=== PATIENT | male | born 1970 | race Caucasian/White ===

== ENCOUNTER 2020-03-03 11:37 | Inpatient (IN) | payer OTHER, SELFPAY ==
[2020-03-03] VITALS (11 sets, daily range): BP systolic 96–141; BP diastolic 61–93; PULSE 111–129; RESP 18–26; TEMP 37.4–38.9; O2SAT 95–98; BMI 36.5
--- NOTE | 2020-03-03 12:26 | XRR_ITS ---
PROCEDURE INFORMATION: Exam: XR Chest, 1 View Exam date and time: 03/03/2020 12:28 PM Age: 49 years old Clinical indication: Cough and fever; Additional info: Cough, fever, covid precautions TECHNIQUE: Imaging protocol: XR of the chest Views: 1 view. COMPARISON: No relevant prior studies available. FINDINGS: Lungs: Unremarkable. No consolidation. Pleural space: Unremarkable. No pleural effusion. No pneumothorax. Heart/Mediastinum: Unremarkable. No cardiomegaly. Bones/joints: Unremarkable. XR/XR chest 1V portable [id number] IMPRESSION: No acute findings.
--- NOTE | 2020-03-03 12:26 | ECG_ITS ---
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 Measurements Intervals [place] Rate: 121 P: 56 ND: 142 QRS: 9 QRSD: 87 T: 32 QT: 305 QTc: 433 Interpretive Statements SINUS TACHYCARDIA ABNORMAL RHYTHM ECG No previous ECG available for comparison Electronically Signed On 03-03-2020 20:42:33 CDT by Red Sanon M.D. [email or web address]/[id number] f
[2020-03-03] MEDS: sodium chloride 0.9% 1,000 ML 999 ML IV ×2 (12:41→15:46)
--- NOTE | 2020-03-03 12:45 | ED_ITS ---
HPI - Fever General: Chief Complaint: Fever Stated Complaint: HAD TEMP LAST NIGHT Time Seen by Provider: 03/03/20 12:09 History of Present Illness: HPI Narrative: This patient is a 49-year-old male type II diabetic presenting with fever, cough, sore throat. He said he had a sore throat for about 8 days but attributed to allergies. Last night he developed fevers and chills with a temperature up to almost 102. His temp here was 99 8 after taking antipyretics at home. He has no known exposures to anyone with COVID. He said in general he has not been around too many people. 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 He did go to a [employer] last night. Dr. Cortés is his PCP. This morning he is complaining of continued sore throat as well as body aches and low back pain. He denies any change in his sense of taste or smell. MD elicited complaint: fever and malaise Pertinent past history: diabetes Onset (ago): day(s) (1, with sore throat for 8 days) Measured temperature: 101.8 F Relieving factors: acetaminophen Associated symptoms: Reports flank pain, chills, cough and sore throat; Deny abdominal pain, chest pain, headache(s), nausea or vomiting Review of Systems General: Reports: 10 or more systems reviewed and unremarkable except in HPI and below Const: Reports: chills Eyes: Denies: change in vision ENMT: Reports: throat pain; Denies: odynophagia Card: Denies: chest pain or swelling of feet/ankles Resp: Reports: non-productive cough; Denies: dyspnea or productive cough GI: Denies: abdominal pain, nausea or vomiting : Reports: flank pain Musc: Reports: back pain; Denies: neck pain Skin/Breast: Denies: rash Neuro: Denies: headache(s), numbness in extremities or weakness in extremities Will/Lymph: Denies: easy bruising or easy bleeding Physical Exam Const: COMMON NORMALS: no acute distress, patient oriented x3, no limitations and alert GENERAL APPEARANCE: cooperative and comfortable HENMT: HEAD & SCALP: normal to inspection FACE & SINUS: normal facial exam THROAT: posterior oropharynx normal Eye: GENERAL EYE: appearance normal, both eyes and all related structures Neck/C-Spine: COMMON NORMALS: supple, no meningeal signs and no JVD Chest: COMMONS NORMALS: normal inspection of the chest Resp: COMMON NORMALS: normal respiratory effort, No use of accessory muscles and clear to auscultation bilaterally AUSCULTATION: clear to auscultation bilaterally Cardio: COMMON NORMALS: no JVD, regular rhythm and No murmurs present (Cardio) RATE: tachycardic RHYTHM: regular rhythm GI: COMMON NORMALS: Normal to inspection, nondistended, normoactive bowel sounds present, Soft to palpation and non-tender INSPECTION: Yes normal to inspection AUSCULTATION: Yes normoactive bowel sounds PALPATION: Yes Soft to palpation Back/Pelvis: COMMON NORMALS: thoracic and lumbar spine normal to inspection Extremity: COMMON NORMALS: normal to inspection Neuro: COMMON NORMALS: patient oriented x3, moves all extremities, no focal motor deficits and no sensory deficits noted SENSORIUM/ORIENTATION: Yes alert MENINGEAL SIGNS: Yes no meningeal signs Psych: COMMON NORMALS: mental status grossly normal, cooperative and normal affect Skin: COMMON NORMALS: no rashes or lesions noted and turgor normal GENERAL SKIN EXAM: no rashes or lesions noted and turgor normal Course ED course: Patient was given a liter of fluid and remained persistently tachycardic around 1 15-1 20. Blood pressure dropped around 90 systolic. Sats remained about 95% on room air. His labs are not significantly abnormal other than a slightly elevated d-dimer of 0.73. Urine was negative. Flu and strep were negative. Chemistry was normal other than an elevated glucose. Lactate is slightly elevated at 2.6. CRP is quite elevated at 61.6. Procalcitonin is negative. The rapid COVID antigen test was negative. A repeat PCT COVID test is pending due to the clinical concern that that may have been a false negative. Because of his persistent tachycardia and hypotension going to admit him to the hospital. If this is COVID these could be signs of worsening. If it is not COVID then we need to determine the cause of these abnormal vital signs. At this point he is not requiring oxygen. I did give a dose of Lovenox because of the elevated d-dimer and need for prophylaxis given admission. Dr. Jacobson will take him on MedSur in the COVID rule out area and did order a CTA for further evaluation. Vital Signs: Vital signs: Vital Signs Temperature 99.3 F 08/01/20 11:55 Pulse Rate 112 H 03/03/20 14:00 Respiratory Rate 26 H 03/03/20 14:00 Blood Pressure 96/67 03/03/20 14:00 Pulse Oximetry 96 03/03/20 14:00 MDM - Fever MDM Narrative: Medical decision making narrative: Fever, cough, sore throat. Symptoms present for about 8 days with worsening last night. No loss of taste or smell. He is also had some loose stools. Presentation is concerning for COVID. He has been to public events recently and has potential exposure though no known exposure. No other obvious source of infection. Potential other viral infection or tick infection. Lab Data: Labs: Lab Results 03/03/20 03/03/20 03/03/20 Range/Units 12:47 12:47 12:47 WBC 11.5 H (4.0-10.0) 10^3/ uL RBC 5.06 (4.1-5.3) 10^6/u L Hgb 15.9 (11.7-16.6) g/dL Hct 43.9 (42.0-52.0) % MCV 86.8 (80-94) fL MCH 31.4 (28.0-34.0) pg MCHC 36.2 H (30.0-36.0) g/dL RDW 12.7 (12.1-15.1) % Plt Count 216 (130-400) 10^3/c mm MPV 10.1 (7.4-10.4) fL Neut % (Auto) 82.7 % Lymph % (Auto) 10.0 % [place] % (Auto) 6.5 % Eos % (Auto) 0.2 % Baso % (Auto) 0.3 % Neut # (Auto) 9.48 H (1.8-7.7) 10^3/u L Lymph # (Auto) 1.1 (0.8-4.8) 10^3/u L [place] # (Auto) 0.7 (0.2-0.9) 10^3/u L Eos # (Auto) 0.0 (0.0-0.8) 10^3/u L Baso # (Auto) 0.0 (0.0-0.1) 10^3/u L Nucleated RBC % (a uto) 0 % Nucleated RBCs # 0.0 /100WBC PT 13.20 (10.5-13.3) SECO NDS INR 0.97 (0.8-1.2) APTT (23.9-36.7) SECO NDS Fibrinogen (184-529) mg/dL D-Dimer 0.73 H (0-0.59) ug/mIFE U Sodium 133 L (136-145) mmol/L Potassium 4.0 (3.5-5.1) mmol/L Chloride 99 (98-107) mmol/L Carbon Dioxide 22 (22-29) mmol/L Anion Gap 16.0 (5-19) BUN 11 (6-20) mg/dL Creatinine 0.7 (0.7-1.2) mg/dL GFR Calculation 119.9 (90-130) mL/min Glucose 238 H (65-115) mg/dL POC Glucose (70-110) mg/dL Calculated Osmolal ity 280 L (285-295) mOsm/k g Lactate (0.5-2.2) mmol/L Calcium 8.6 (8.5-10.5) mg/dL Ferritin (30-400) ng/mL Total Bilirubin 0.7 (0.15-1.2) mg/dL AST 26 (0-40) U/L ALT 31 (0-41) U/L Alkaline Phosphata se 96 (40-130) IU/L Lactate Dehydrogen ase (135-225) U/L Troponin T Baselin e (0-15) ng/L Troponin T 120 Min [place] (0-15) ng/L C-Reactive Protein 61.6 H (0.0-4.9) mg/L NT-Pro-B Natriuret Pep 47 (0-125) pg/mL Total Protein 7.0 (6.6-8.7) g/dL Albumin 4.3 (3.5-5.2) g/dL Globulin 2.7 (1.3-4.6) g/dL Procalcitonin 0.21 (0-0.5) ng/mL Urine Color (Yellow) Urine Appearance (CLEAR) Urine pH (5-7) Ur Specific Gravit y (1.005-1.030) Urine Protein (Negative) Urine Glucose (UA) (Normal) Urine Ketones (Negative) Urine Blood (Negative) Urine Nitrate (Negative) Urine Bilirubin (NEGATIVE) Urine Urobilinogen (Negative) mg/dL Ur Leukocyte Radha ase (Negative) Urine RBC (0-2) /hpf Urine WBC (0-5) /hpf Ur Squamous Epith Cells (0-5) Amorphous Sediment Urine Bacteria (NONE) Urine Mucus Serum Ketones (Negative) Influenza Type A A g (Negative) Influenza Type B A g (Negative) SARS-CoV-2 RNA (RT -PCR) SARS-CoV-2 Ag (Rap id) (Negative) Group A Strep Rapi d (Negative) 03/03/20 03/03/20 03/03/20 Range/Units 12:47 12:47 12:47 WBC (4.0-10.0) 10^3/ uL RBC (4.1-5.3) 10^6/u L Hgb (11.7-16.6) g/dL Hct (42.0-52.0) % MCV (80-94) fL MCH (28.0-34.0) pg MCHC (30.0-36.0) g/dL RDW (12.1-15.1) % Plt Count (130-400) 10^3/c mm MPV (7.4-10.4) fL Neut % (Auto) % Lymph % (Auto) % [place] % (Auto) % Eos % (Auto) % Baso % (Auto) % Neut # (Auto) (1.8-7.7) 10^3/u L Lymph # (Auto) (0.8-4.8) 10^3/u L [place] # (Auto) (0.2-0.9) 10^3/u L Eos # (Auto) (0.0-0.8) 10^3/u L Baso # (Auto) (0.0-0.1) 10^3/u L Nucleated RBC % (a uto) % Nucleated RBCs # /100WBC PT (10.5-13.3) SECO NDS INR (0.8-1.2) APTT 28.5 (23.9-36.7) SECO NDS Fibrinogen 441 (184-529) mg/dL D-Dimer (0-0.59) ug/mIFE U Sodium (136-145) mmol/L Potassium (3.5-5.1) mmol/L Chloride (98-107) mmol/L Carbon Dioxide (22-29) mmol/L Anion Gap (5-19) BUN (6-20) mg/dL Creatinine (0.7-1.2) mg/dL GFR Calculation (90-130) mL/min Glucose (65-115) mg/dL POC Glucose (70-110) mg/dL Calculated Osmolal ity (285-295) mOsm/k g Lactate 2.6 H (0.5-2.2) mmol/L Calcium (8.5-10.5) mg/dL Ferritin (30-400) ng/mL Total Bilirubin (0.15-1.2) mg/dL AST (0-40) U/L ALT (0-41) U/L Alkaline Phosphata se (40-130) IU/L Lactate Dehydrogen ase (135-225) U/L Troponin T Baselin e (0-15) ng/L Troponin T 120 Min [place] (0-15) ng/L C-Reactive Protein (0.0-4.9) mg/L NT-Pro-B Natriuret Pep (0-125) pg/mL Total Protein (6.6-8.7) g/dL Albumin (3.5-5.2) g/dL Globulin (1.3-4.6) g/dL Procalcitonin (0-0.5) ng/mL Urine Color (Yellow) Urine Appearance (CLEAR) Urine pH (5-7) Ur Specific Gravit y (1.005-1.030) Urine Protein (Negative) Urine Glucose (UA) (Normal) Urine Ketones (Negative) Urine Blood (Negative) Urine Nitrate (Negative) Urine Bilirubin (NEGATIVE) Urine Urobilinogen (Negative) mg/dL Ur Leukocyte Radha ase (Negative) Urine RBC (0-2) /hpf Urine WBC (0-5) /hpf Ur Squamous Epith Cells (0-5) Amorphous Sediment Urine Bacteria (NONE) Urine Mucus Serum Ketones Negative (Negative) Influenza Type A A g (Negative) Influenza Type B A g (Negative) SARS-CoV-2 RNA (RT -PCR) SARS-CoV-2 Ag (Rap id) (Negative) Group A Strep Rapi d (Negative) 0803/03/20 03/03/20 Range/Units 12:47 12:48 12:49 WBC (4.0-10.0) 10^3/ uL RBC (4.1-5.3) 10^6/u L Hgb (11.7-16.6) g/dL Hct (42.0-52.0) % MCV (80-94) fL MCH (28.0-34.0) pg MCHC (30.0-36.0) g/dL RDW (12.1-15.1) % Plt Count (130-400) 10^3/c mm MPV (7.4-10.4) fL Neut % (Auto) % Lymph % (Auto) % [place] % (Auto) % Eos % (Auto) % Baso % (Auto) % Neut # (Auto) (1.8-7.7) 10^3/u L Lymph # (Auto) (0.8-4.8) 10^3/u L [place] # (Auto) (0.2-0.9) 10^3/u L Eos # (Auto) (0.0-0.8) 10^3/u L Baso # (Auto) (0.0-0.1) 10^3/u L Nucleated RBC % (a uto) % Nucleated RBCs # /100WBC PT (10.5-13.3) SECO NDS INR (0.8-1.2) APTT (23.9-36.7) SECO NDS Fibrinogen (184-529) mg/dL D-Dimer (0-0.59) ug/mIFE U Sodium (136-145) mmol/L Potassium (3.5-5.1) mmol/L Chloride (98-107) mmol/L Carbon Dioxide (22-29) mmol/L Anion Gap (5-19) BUN (6-20) mg/dL Creatinine (0.7-1.2) mg/dL GFR Calculation (90-130) mL/min Glucose (65-115) mg/dL POC Glucose 233 (70-110) mg/dL Calculated Osmolal ity (285-295) mOsm/k g Lactate (0.5-2.2) mmol/L Calcium (8.5-10.5) mg/dL Ferritin 806 H (30-400) ng/mL Total Bilirubin (0.15-1.2) mg/dL AST (0-40) U/L ALT (0-41) U/L Alkaline Phosphata se (40-130) IU/L Lactate Dehydrogen ase 187 (135-225) U/L Troponin T Baselin e (0-15) ng/L Troponin T 120 Min [place] (0-15) ng/L C-Reactive Protein (0.0-4.9) mg/L NT-Pro-B Natriuret Pep (0-125) pg/mL Total Protein (6.6-8.7) g/dL Albumin (3.5-5.2) g/dL Globulin (1.3-4.6) g/dL Procalcitonin (0-0.5) ng/mL Urine Color (Yellow) Urine Appearance (CLEAR) Urine pH (5-7) Ur Specific Gravit y (1.005-1.030) Urine Protein (Negative) Urine Glucose (UA) (Normal) Urine Ketones (Negative) Urine Blood (Negative) Urine Nitrate (Negative) Urine Bilirubin (NEGATIVE) Urine Urobilinogen (Negative) mg/dL Ur Leukocyte Radha ase (Negative) Urine RBC (0-2) /hpf Urine WBC (0-5) /hpf Ur Squamous Epith Cells (0-5) Amorphous Sediment Urine Bacteria (NONE) Urine Mucus Serum Ketones (Negative) Influenza Type A A g (Negative) Influenza Type B A g (Negative) SARS-CoV-2 RNA (RT -PCR) SARS-CoV-2 Ag (Rap id) (Negative) Group A Strep Rapi d Negative (Negative) 03/03/20 03/03/20 03/03/20 Range/Units 12:49 12:49 13:22 WBC (4.0-10.0) 10^3/ uL RBC (4.1-5.3) 10^6/u L Hgb (11.7-16.6) g/dL Hct (42.0-52.0) % MCV (80-94) fL MCH (28.0-34.0) pg MCHC (30.0-36.0) g/dL RDW (12.1-15.1) % Plt Count (130-400) 10^3/c mm MPV (7.4-10.4) fL Neut % (Auto) % Lymph % (Auto) % [place] % (Auto) % Eos % (Auto) % Baso % (Auto) % Neut # (Auto) (1.8-7.7) 10^3/u L Lymph # (Auto) (0.8-4.8) 10^3/u L [place] # (Auto) (0.2-0.9) 10^3/u L Eos # (Auto) (0.0-0.8) 10^3/u L Baso # (Auto) (0.0-0.1) 10^3/u L Nucleated RBC % (a uto) % Nucleated RBCs # /100WBC PT (10.5-13.3) SECO NDS INR (0.8-1.2) APTT (23.9-36.7) SECO NDS Fibrinogen (184-529) mg/dL D-Dimer (0-0.59) ug/mIFE U Sodium (136-145) mmol/L Potassium (3.5-5.1) mmol/L Chloride (98-107) mmol/L Carbon Dioxide (22-29) mmol/L Anion Gap (5-19) BUN (6-20) mg/dL Creatinine (0.7-1.2) mg/dL GFR Calculation (90-130) mL/min Glucose (65-115) mg/dL POC Glucose (70-110) mg/dL Calculated Osmolal ity (285-295) mOsm/k g Lactate (0.5-2.2) mmol/L Calcium (8.5-10.5) mg/dL Ferritin (30-400) ng/mL Total Bilirubin (0.15-1.2) mg/dL AST (0-40) U/L ALT (0-41) U/L Alkaline Phosphata se (40-130) IU/L Lactate Dehydrogen ase (135-225) U/L Troponin T Baselin e (0-15) ng/L Troponin T 120 Min [place] (0-15) ng/L C-Reactive Protein (0.0-4.9) mg/L NT-Pro-B Natriuret Pep (0-125) pg/mL Total Protein (6.6-8.7) g/dL Albumin (3.5-5.2) g/dL Globulin (1.3-4.6) g/dL Procalcitonin (0-0.5) ng/mL Urine Color Yellow (Yellow) Urine Appearance Turbid (CLEAR) Urine pH 5 (5-7) Ur Specific Gravit y 1.025 (1.005-1.030) Urine Protein 1+ H (Negative) Urine Glucose (UA) 2+ (Normal) Urine Ketones 1+ H (Negative) Urine Blood Neg (Negative) Urine Nitrate Negative (Negative) Urine Bilirubin 1+ H (NEGATIVE) Urine Urobilinogen 1 H (Negative) mg/dL Ur Leukocyte Radha ase Negative (Negative) Urine RBC None (0-2) /hpf Urine WBC None (0-5) /hpf Ur Squamous Epith Cells Rare (0-5) Amorphous Sediment 4+ Urine Bacteria Trace (NONE) Urine Mucus Trace Serum Ketones (Negative) Influenza Type A A g Negative (Negative) Influenza Type B A g Negative (Negative) SARS-CoV-2 RNA (RT -PCR) Cancelled SARS-CoV-2 Ag (Rap id) (Negative) Group A Strep Rapi d (Negative) 03/03/20 03/03/20 03/03/20 Range/Units 14:20 14:47 15:05 WBC (4.0-10.0) 10^3/ uL RBC (4.1-5.3) 10^6/u L Hgb (11.7-16.6) g/dL Hct (42.0-52.0) % MCV (80-94) fL MCH (28.0-34.0) pg MCHC (30.0-36.0) g/dL RDW (12.1-15.1) % Plt Count (130-400) 10^3/c mm MPV (7.4-10.4) fL Neut % (Auto) % Lymph % (Auto) % [place] % (Auto) % Eos % (Auto) % Baso % (Auto) % Neut # (Auto) (1.8-7.7) 10^3/u L Lymph # (Auto) (0.8-4.8) 10^3/u L [place] # (Auto) (0.2-0.9) 10^3/u L Eos # (Auto) (0.0-0.8) 10^3/u L Baso # (Auto) (0.0-0.1) 10^3/u L Nucleated RBC % (a uto) % Nucleated RBCs # /100WBC PT (10.5-13.3) SECO NDS INR (0.8-1.2) APTT (23.9-36.7) SECO NDS Fibrinogen (184-529) mg/dL D-Dimer (0-0.59) ug/mIFE U Sodium (136-145) mmol/L Potassium (3.5-5.1) mmol/L Chloride (98-107) mmol/L Carbon Dioxide (22-29) mmol/L Anion Gap (5-19) BUN (6-20) mg/dL Creatinine (0.7-1.2) mg/dL GFR Calculation (90-130) mL/min Glucose (65-115) mg/dL POC Glucose (70-110) mg/dL Calculated Osmolal ity (285-295) mOsm/k g Lactate (0.5-2.2) mmol/L Calcium (8.5-10.5) mg/dL Ferritin (30-400) ng/mL Total Bilirubin (0.15-1.2) mg/dL AST (0-40) U/L ALT (0-41) U/L Alkaline Phosphata se (40-130) IU/L Lactate Dehydrogen ase (135-225) U/L Troponin T Baselin e 9 (0-15) ng/L Troponin T 120 Min [place] 6.86 (0-15) ng/L C-Reactive Protein (0.0-4.9) mg/L NT-Pro-B Natriuret Pep (0-125) pg/mL Total Protein (6.6-8.7) g/dL Albumin (3.5-5.2) g/dL Globulin (1.3-4.6) g/dL Procalcitonin (0-0.5) ng/mL Urine Color (Yellow) Urine Appearance (CLEAR) Urine pH (5-7) Ur Specific Gravit y (1.005-1.030) Urine Protein (Negative) Urine Glucose (UA) (Normal) Urine Ketones (Negative) Urine Blood (Negative) Urine Nitrate (Negative) Urine Bilirubin (NEGATIVE) Urine Urobilinogen (Negative) mg/dL Ur Leukocyte Radha ase (Negative) Urine RBC (0-2) /hpf Urine WBC (0-5) /hpf Ur Squamous Epith Cells (0-5) Amorphous Sediment Urine Bacteria (NONE) Urine Mucus Serum Ketones (Negative) Influenza Type A A g (Negative) Influenza Type B A g (Negative) SARS-CoV-2 RNA (RT -PCR) SARS-CoV-2 Ag (Rap id) Negative (Negative) Group A Strep Rapi d (Negative) Discharge Plan Discharge Prescriptions: No Action Multiple Vitamins Tablet 1 tab PO DAILY RF: 0 alprazolam 0.25 mg tablet 0.25 mg PO BID RF: 0 metformin 1,000 mg tablet 1,000 mg PO BID RF: 0 ibuprofen 200 mg Tablet 600 mg PO PRN RF: 0 Tylenol 2 tab PO PRN RF: 0 Coding Level of Care Code ED [employer] Fwd Exam Comprehensive
[2020-03-03 12:57] LABS: Glucose Point of Care 233 mg/dL (70-110)
[2020-03-03 13:09] LABS: Basophils % 0.3 %; Eosinophils % 0.2 %; Hematocrit 43.9 % (42.0-52.0); Hemoglobin 15.9 g/dL (11.7-16.6); Lymphocytes # 1.1 10^3/uL (0.8-4.8); Mean Corpuscular HGB Conc 36.2 g/dL (30.0-36.0); Mean Corpuscular Hemoglobin 31.4 pg (28.0-34.0); Mean Corpuscular Volume 86.8 fL (80-94); Mean Platelet Volume 10.1 fL (7.4-10.4); Monocytes # 0.7 10^3/uL (0.2-0.9); Monocytes % 6.5 %; Neutrophils # 9.48 10^3/uL (1.8-7.7); Neutrophils % 82.7 %; Nucleated Red Blood Cells % 0 %; Platelet Count 216 10^3/cmm (130-400); Red Blood Count 5.06 10^6/uL (4.1-5.3); Red Cell Distribution Width 12.7 % (12.1-15.1); White Blood Count 11.5 10^3/uL (4.0-10.0)
[2020-03-03 13:20] LABS: Rapid Strep A Test Negative (Negative)
[2020-03-03 13:23] LABS: INR 0.97 (0.8-1.2)
[2020-03-03 13:25] LABS: D Dimer 0.73 ug/mIFEU (0-0.59); Ketone (Acetest) Serum Negative (Negative)
[2020-03-03 13:29] LABS: Influenza A by IFA Negative (Negative); Influenza B by IFA Negative (Negative)
[2020-03-03 13:30] LABS: Add Urine Microscopic? YES; Bilirubin Urine 1+ (NEGATIVE); Blood Urine Neg (Negative); Glucose Urine UA 2+ (Normal); Ketones Urine 1+ (Negative); Leukocyte Esterase Urine Negative (Negative); Nitrate Urine Negative (Negative); Protein Urine 1+ (Negative); Specific Gravity, Urine 1.025 (1.005-1.030); Urine Appearance Turbid (CLEAR); Urine Color Yellow (Yellow); Urobilinogen Urine 1 mg/dL (Negative); pH Urine 5 (5-7)
[2020-03-03 13:31] LABS: Lactate (Lactic Acid level) 2.6 mmol/L (0.5-2.2)
[2020-03-03 13:33] LABS: Squamous Epithelial Cell Urine RARE (0-5)
[2020-03-03 13:34] LABS: Add Urine Culture? No; Amorphous Sediment Urine 4+; Bacteria Urine TRACE; Mucus Urine TRACE
[2020-03-03 13:38] LABS: NT Pro B Type Natriuretic Pept 47 pg/mL (0-125); Procalcitonin 0.21 ng/mL (0-0.5)
[2020-03-03 13:51] LABS: Alanine Aminotransferase 31 U/L (0-41); Albumin Level 4.3 g/dL (3.5-5.2); Alkaline Phosphatase 96 IU/L (40-130); Aspartate Amino Transferase 26 U/L (0-40); Blood Urea Nitrogen 11 mg/dL (6-20); C Reactive Protein 61.6 mg/L (0.0-4.9); Calcium 8.6 mg/dL (8.5-10.5); Carbon Dioxide 22 mmol/L (22-29); Chloride 99 mmol/L (98-107); Globulin 2.7 g/dL (1.3-4.6); Glomerular Filtration Rate 119.9 mL/min (90-130); Glucose 238 mg/dL (65-115); Osmolality Calculated 280 mOsm/kg (285-295); Sodium 133 mmol/L (136-145); Total Bilirubin 0.7 mg/dL (0.15-1.2)
[2020-03-03 15:02] LABS: Fibrinogen 441 mg/dL (184-529); Partial Thromboplastin Time 28.5 SECONDS (23.9-36.7)
[2020-03-03 15:02] LABS: SARS Covid-2 Antigen Negative (Negative)
[2020-03-03 15:09] LABS: Ferritin 806 ng/mL (30-400); Lactate Dehydrogenase 187 U/L (135-225)
[2020-03-03] MEDS: enoxaparin 120 mg/0.8 mL Syringe 110 MG SUBCUT (15:10)
--- NOTE | 2020-03-03 15:21 | CTR_ITS ---
PROCEDURE INFORMATION: Exam: CT Angiography Chest With Contrast Exam date and time: 03/03/2020 4:28 PM Age: 49 years old Clinical indication: Cough and fever; Patient HX: C/O fever, cough, sore throat; Additional info: R/O pe TECHNIQUE: Imaging protocol: Computed tomographic angiography of the chest with intravenous contrast. 3D rendering: MIP and/or 3D reconstructed images were created by the technologist. Radiation optimization: All CT scans at this facility use at least one of these dose optimization techniques: automated exposure control; mA and/or kV adjustment per patient size (includes targeted exams where dose is matched to clinical indication); or iterative reconstruction. Contrast material: OMNI 350; Contrast volume: 95 ml; Contrast route: INTRAVENOUS (IV); COMPARISON: CR (CHEST, ) 03/03/2020 12:41 PM RADIATION DOSE METRICS: Total DLP (mGy-cm): 587.99 FINDINGS: Pulmonary arteries: Normal. No pulmonary emboli. Aorta: Unremarkable. No aortic aneurysm. No aortic dissection. Lungs: Unremarkable. No consolidation. No masses. Pleural space: Unremarkable. No pneumothorax. No pleural effusion. Heart: Unremarkable. No cardiomegaly. No pericardial effusion. Lymph nodes: Unremarkable. No enlarged lymph nodes. Bones/joints: Unremarkable. No acute fracture. Soft tissues: Unremarkable. CT/CT angio chest PE protcl [id number] IMPRESSION: No acute findings. There is no evidence for a pulmonary embolus. Radiation Dose CTDIVOL = (mGy): DLP = 587.99 (mGy-cm)
[2020-03-03 15:34] LABS: Troponin(5th) Baseline 9 ng/L (0-15)
[2020-03-03 15:40] LABS: Troponin 5 2HR 6.86 ng/L (0-15)
[2020-03-03 15:43] LABS: Troponin 5 2HR Delta -2.14 ABS# (0-10)
[2020-03-03] MEDS: famotidine 20 mg/2 mL INJ IVP (15:46)
[2020-03-03 16:10] LABS: Thyroid Stimulating Hormone 0.96 uIU/mL (0.27-4.20)
[2020-03-03] MEDS: iohexol 350 mg/mL 100 mL Btl IV (16:40)
--- NOTE | 2020-03-03 16:57 | ECG_ITS ---
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 Measurements Intervals [place] Rate: 120 P: 34 KS: 147 QRS: -16 QRSD: 90 T: 47 QT: 299 QTc: 422 Interpretive Statements SINUS TACHYCARDIA ABNORMAL RHYTHM ECG INTERPRETATION BASED ON A DEFAULT AGE OF 40 YEARS Compared to ECG 03/03/2020 12:40:36 No significant changes Electronically Signed On 03-03-2020 20:48:17 CDT by Red Sanon M.D. [id number]
[2020-03-03 17:45] LABS: Glucose Point of Care 194 mg/dL (70-110)
--- NOTE | 2020-03-03 17:50 | P.HP_ITS ---
Providers/Chief Complaint Admitting Physician: Gianni Vega MD Primary Care Provider: Francis Cortés MD Chief Complaint: HAD TEMP LAST NIGHT History of Present Illness Dejon Dorman is a 49 year old male with past medical history of type 2 diabetes mellitus, chronic cough who works at a [employer] presents to the ER today after having sore throat for the last 8 to 9 days. Sore throat has been waxing and waning for last 1 week. Last night he and his went to [employer] and on the way back he started having some chills. On reaching home he had 4-5 episodes of diarrhea and T-max at home was up to 102 Fahrenheit. Patient was nauseous but did not have any vomiting. Denies of having any blood in stools, foul smell. He states he is been having cough but it is no different than usual without any expectoration. Complains of postnasal drip. He has a sick contact of [employer] and his neighbor. 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 Nobody else at home is having similar complaints. He denies of having any difficulty in breathing, headache, loss of sense of smell or taste, abdominal pain, weight loss, night sweats, chest pain. The ER on presentation as per the ER physician patient required 2 L of oxygenation to maintain saturation with heart rate over 110 and fever of T-max 99.9 Fahrenheit. His blood work showed a white count of 11.5, d-dimer of 0.7, sodium of 133, creatinine was 0.7, lactate of 2.6, ferritin of 806, normal liver functions, elevated CRP, normal procalcitonin and proBNP. In ER rapid COVID-19 test was done and was negative. Patient received full dose of Lovenox and 1 L of IV bolus. On examination patient is comfortably sitting in bed saturating 96% on room air with heart rate still running 113 bpm. Review of Systems General: Reports: 10 or more systems reviewed and unremarkable except in HPI and below Const: Denies: fever(s), chills, body aches, change in appetite, change in weight, malaise, night sweats, diaphoresis, change in sleep pattern, daytime sleepiness or snoring Eyes: Denies: change in vision, blurry vision, photophobia, eye discomfort or eye discharge ENMT: Denies: throat pain, enlarged tonsils, hoarseness, mouth pain, oral sores, dry mouth, tinnitus, nasal congestion or post nasal drip Card: Denies: chest pain, palpitations, irregular heart rhythm, edema, swelling of feet/ankles, lightheadedness, syncope, pre-syncope, dyspnea on exertion, orthopnea, leg pain with exertion or acrocyanosis Resp: Denies: dyspnea, productive cough, non-productive cough, wheezing, stridor, pain on inspiration, change in phlegm color, hemoptysis or chest congestion GI: Reports: nausea, heartburn and diarrhea; Denies: abdominal pain, vomiting, hematemesis, coffee ground emesis, dysphagia, constipation, bloating, GI cramping, change in bowel habits, pain on defecation, hematochezia or melena : Denies: flank pain, difficulty urinating, dysuria, urinary frequency, urinary urgency, urinary hesitancy, urinary dribbling, difficulty starting urination, change in urine stream, nocturia or hematuria Musc: Denies: neck pain, back pain, extremity pain, joint pain, joint swelling, joint redness, joint stiffness or limited range of motion Neuro: Denies: headache(s), numbness in extremities, weakness in extremities, sensory changes, lack of coordination, difficulty walking, frequent falls, dizziness, vertigo, confusion, Slurred speech present, difficulty communicating thoughts or seizure-like activity Psych: Denies: anxiety, depression, mood swings, panic attacks, hopelessness or irritability Endo: Denies: polyuria, polydipsia, tired all the time, cold intolerance, excessive sweating, flushing or heat intolerance Will/Lymph: Denies: easy bruising or easy bleeding All/Imm: Denies: tongue swelling, facial swelling or acute wheezing Medications/Allergies Home Medications Medication Instructions Recorded Confirmed Last Taken Type Tylenol 2 tab PO PRN 03/03/20 03/03/20 03/02/20 History alprazolam 0.25 mg PO BID 03/03/20 03/03/20 Unknown History ibuprofen 600 mg PO PRN 03/03/20 03/03/20 03/03/20 09:00 History metformin 1,000 mg PO BID 03/03/20 03/03/20 Unknown History multivitamin [Multiple Vitamins] 1 tab PO DAILY 03/03/20 03/03/20 Unknown History Allergies Allergy/AdvReac Type Severity Reaction Status Date / Time No Known Allergies Allergy Verified 03/03/20 13:06 PFSH Acute PFSH: Medical History (Updated 03/03/20 @ 18:03 by Gianni Vega MD) Chronic cough Plantar fasciitis, bilateral Type 2 diabetes mellitus Social History (Updated 03/03/20 @ 17:58 by Gianni Vega MD) Smoking and tobacco status: former smoker Second hand smoke exposure: No Alcohol intake: never Substance/Drug Use: never Lives independently: Yes Household members: family Housing: House Marital status: Vitals/I&O/Wt Last Vital Signs Temp 99.9 F H 03/03/20 16:52 Pulse 111 H 03/03/20 17:19 Resp 20 H 03/03/20 16:52 BP 131/84 03/03/20 16:52 Pulse Ox 96 03/03/20 17:19 03/03/20 03/03/20 03/03/20 06:59 14:59 22:59 Intake Total 1000 / 1000 Balance 1000 / 1000 Weight last 48 hrs Weight 108.862 kg Physical Exam Narrative: EXAM NARRATIVE: General: No acute distress, AO x3 HEENT: PERRLA, pupils bilaterally equal and reactive Chest: Normal vesicular breath sounds, no added sounds, equal good air entry bilaterally CVS: S1-S2 regular, no murmurs, no tachycardia, no gallops, no rubs Abdomen: Soft, nontender, no organomegaly, bowel sounds present Neuro: No focal deficits, no facial deformity, AO x3, power 5/5 in all limbs Data : 03/03/20 12:47 03/03/20 12:47 Micro: Microbiology 03/03/20 12:49 Bacterial Antigens - Final Urine,Voided 03/03/20 12:49 Legionella Urinary Antigen - Final Urethra 03/03/20 12:47 Blood Culture - Preliminary Blood SPECIMEN COLLECTED A&P Assessment and plan (1) Fever: Status: Acute (2) Diarrhea: Status: Acute (3) Chronic cough: Status: Acute (4) Type 2 diabetes mellitus: Status: Acute (5) Tachycardia: Most likely secondary to dehydration and fever. Continue with IV fluids. Will rule out PE. Telemetry. Continue to monitor. Status: Acute Additional A&P Information History of type 2 diabetes mellitus comes in with chronic cough with exposure to COVID-19 and his neighbor presents with fever for last 24 hours and 4-5 episodes of diarrhea. It is quite possible that source of patient's symptoms is most likely GI given his exposure to COVID-19 will send COVID test to [facility] lab even though rapid COVID-19 test was negative. For now for inflammatory markers d-dimer is elevated, fibrinogen is normal, ferritin level is elevated. Contact and droplet precautions. As patient does not have any rhonchi and saturating normal on room air will hold off on any nebulization or steroids for now. Given persistent tachycardia and elevated d-dimer cannot rule out PE so will do CTA PE exam. Will also help with definition of any consolidation in the lungs. Patient already received full dose Lovenox in the ER. Will dose further Lovenox as per the CT results. Stool studies for diarrhea. Famotidine twice daily, Zofran as needed. Zosyn at renal dose. Stat blood cultures, bacterial antigen, sputum Gram stain and culture, MRSA swab, urine Legionella. Flu swab negative. Normal saline at 75 cc/h. Check HbA1c, iron panel, TSH, lipid panel. Type 2 diabetes mellitus: Insulin sliding scale. Hold OHA. Check HbA1c. Full code. Carb consistent diet. For now Lovenox for DVT prophylaxis. 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
[2020-03-03] MEDS: sodium chloride 0.9% 1,000 ML 75 ML IV (17:59)
[2020-03-03] MEDS: ALPRAZolam 0.25 mg Tablet PO (18:00)
[2020-03-03] MEDS: piperacillin-tazobactam 3.375 GM in sodium chloride 0.9% (plus) 50 ML IV (18:38)
[2020-03-03] MEDS: acetaminophen 325 mg Tablet 650 MG PO (18:43)
[2020-03-03 19:42] LABS: Troponin 5 6HR 8.06 ng/L (0-15)
[2020-03-03 19:44] LABS: Troponin 5 6HR Delta -0.94 ng/L (0-12)
--- NOTE | 2020-03-03 20:57 | ECG_ITS ---
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 Measurements Intervals [place] Rate: -1 P: NE: -1 QRS: 0 QRSD: -1 T: 0 QT: -1 QTc: Interpretive Statements NO FURTHER INTERPRETATION POSSIBLE ATYPICAL ECG WARNING: DATA QUALITY MAY AFFECT INTERPRETATION Compared to ECG 03/03/2020 17:05:02 Sinus tachycardia no longer present Electronically Signed On 03-03-2020 20:48:58 CDT by Red Sanon M.D. [id number]
[2020-03-03 21:38] LABS: Glucose Point of Care 188 mg/dL (70-110)
[2020-03-04] VITALS: BP 113/68; PULSE 113; RESP 18; TEMP 37.6; O2SAT 93
[2020-03-04] MEDS: piperacillin-tazobactam 3.375 GM in sodium chloride 0.9% (plus) 50 ML IV ×3 (01:10→17:47)
[2020-03-04] MEDS: acetaminophen 325 mg Tablet 650 MG PO (01:10)
[2020-03-04 04:00] VITALS: BP 108/69; PULSE 108; RESP 18; TEMP 37.9; O2SAT 96
[2020-03-04 04:17] LABS: Chol HDL Ratio 3.45 mg/dL (1.0-5.00); Cholesterol 131 mg/dL (0-200); HDL Cholesterol 38 mg/dL (60-100); LDL Cholesterol Calculated 64 mg/dL (50-129); Triglycerides 145 mg/dL (0-150); VLDL Cholestrol Calculation 29 mg/dL (0-30)
[2020-03-04] MEDS: famotidine 20 mg/2 mL INJ IVP ×2 (04:17→17:48)
[2020-03-04 04:18] LABS: Alanine Aminotransferase 24 U/L (0-41); Albumin Level 3.6 g/dL (3.5-5.2); Alkaline Phosphatase 88 IU/L (40-130); Aspartate Amino Transferase 22 U/L (0-40); Blood Urea Nitrogen 7 mg/dL (6-20); Calcium 8.6 mg/dL (8.5-10.5); Carbon Dioxide 25 mmol/L (22-29); Chloride 100 mmol/L (98-107); Glomerular Filtration Rate 119.9 mL/min (90-130); Glucose 205 mg/dL (65-115); Osmolality Calculated 280 mOsm/kg (285-295); Sodium 134 mmol/L (136-145); Total Bilirubin 0.8 mg/dL (0.15-1.2); Total Protein 5.6 g/dL (6.6-8.7)
[2020-03-04 04:44] LABS: Basophils % 0.4 %; Eosinophils % 0.4 %; Hematocrit 39.7 % (42.0-52.0); Hemoglobin 13.8 g/dL (11.7-16.6); Lymphocytes # 1.3 10^3/uL (0.8-4.8); Lymphocytes % 15.7 %; Mean Corpuscular HGB Conc 34.8 g/dL (30.0-36.0); Mean Corpuscular Hemoglobin 30.7 pg (28.0-34.0); Mean Corpuscular Volume 88.4 fL (80-94); Mean Platelet Volume 9.5 fL (7.4-10.4); Monocytes # 0.7 10^3/uL (0.2-0.9); Neutrophils # 5.91 10^3/uL (1.8-7.7); Neutrophils % 74.1 %; Nucleated Red Blood Cells % 0 %; Platelet Count 166 10^3/cmm (130-400); Red Blood Count 4.49 10^6/uL (4.1-5.3); Red Cell Distribution Width 12.6 % (12.1-15.1)
[2020-03-04 05:03] LABS: Estmated Average Glucose 217; Hemoglobin A1C 9.2 % (4.0-6.0)
[2020-03-04 06:45] LABS: Glucose Point of Care 242 mg/dL (70-110)
--- NOTE | 2020-03-04 07:47 | CTR_ITS ---
PROCEDURE INFORMATION: Exam: CT Abdomen And Pelvis Without Contrast Exam date and time: 03/04/2020 7:48 AM Age: 49 years old Clinical indication: Other: Diarrhea; Additional info: Colitis TECHNIQUE: Imaging protocol: Computed tomography of the abdomen and pelvis without contrast. Radiation optimization: All CT scans at this facility use at least one of these dose optimization techniques: automated exposure control; mA and/or kV adjustment per patient size (includes targeted exams where dose is matched to clinical indication); or iterative reconstruction. COMPARISON: No relevant prior studies available. RADIATION DOSE METRICS: Total DLP (mGy-cm): 1775.39 FINDINGS: Detailed evaluation of the abdominal and pelvic viscera is somewhat limited in the absence of intravenous contrast. Pleural space: No acute airspace or pleural disease. Liver: Fatty infiltration of the liver. Gallbladder and bile ducts: Contracted gallbladder with cholelithiasis. No biliary ductal dilatation. Pancreas: No pancreatic mass or ductal dilatation. Spleen: Granulomata in the enlarged spleen, measuring 14.5 cm in length. Adrenals: Unremarkable adrenals. Kidneys and ureters: Normal renal morphology. No hydronephrosis. Stomach and bowel: No significant small bowel dilatation. Diverticula. Marked right colonic wall thickening with infiltration of pericolonic fat, in a pattern of colitis. Appendix: No acute appendicitis. Intraperitoneal space: Trace free fluid. Vasculature: Normal caliber of the abdominal aorta. Lymph nodes: Subcentimeter lymph nodes. Bladder: Normal morphology of the nondistended bladder. Reproductive: Prostate calcifications. Bones/joints: Mild degenerative change . Soft tissues: Small umbilical hernia. Calcification at the gluteal muscle attachment site. CT/CT abdomen pelvis [facility] [address] IMPRESSION: 1. Marked right colonic wall thickening with infiltration of pericolonic fat, in a pattern of colitis. 2. Contracted gallbladder with cholelithiasis. 3. Additional findings as described above. Radiation Dose CTDIVOL = (mGy): DLP = 1775.39 (mGy-cm)
[2020-03-04 08:00] VITALS: BP 145/78; PULSE 103; RESP 20; TEMP 37.2; O2SAT 96
[2020-03-04] MEDS: sodium chloride 0.9% 1,000 ML 75 ML IV ×2 (08:02→20:59)
[2020-03-04] MEDS: ALPRAZolam 0.25 mg Tablet PO ×2 (08:02→17:48)
[2020-03-04] MEDS: multivitamin therapeutic Tablet 1 TAB PO (08:02)
[2020-03-04 12:00] VITALS: BP 131/88; PULSE 106; RESP 18; TEMP 36.9; O2SAT 98
[2020-03-04 12:15] LABS: Glucose Point of Care 233 mg/dL (70-110)
--- NOTE | 2020-03-04 14:47 | PM.PN ---
Subjective Subjective: Interval history: Events overnight. Patient has remained hemodynamically stable. Is anxious to go home. Patient has had 2-3 episodes of liquid bowel movements. Patient continues to saturate well on room air. Denies of having any nausea, vomiting. COVID-19'results awaited. Vitals/I&O/Wt Last Vital Signs Temp 98.5 F 03/04/20 12:00 Pulse 106 H 03/04/20 12:00 Resp 18 03/04/20 12:00 BP 131/88 03/04/20 12:00 Pulse Ox 98 03/04/20 12:00 03/03/20 03/04/20 03/04/20 22:59 06:59 14:59 Intake Total 410 / 1410 50 / 1460 1360 / 1360 Output Total 300 / 300 Balance 110 / 1110 50 / 1160 1360 / 1360 Weight last 48 hrs Weight 118.977 kg Weight 108.862 kg Physical Exam Narrative: EXAM NARRATIVE: General: No acute distress, AO x3 HEENT: PERRLA, pupils bilaterally equal and reactive Chest: Normal vesicular breath sounds, no added sounds, equal good air entry bilaterally CVS: S1-S2 regular, no murmurs, no tachycardia, no gallops, no rubs Abdomen: Soft, nontender, no organomegaly, bowel sounds present Neuro: No focal deficits, no facial deformity, AO x3, power 5/5 in all limbs Data : 03/04/20 04:33 03/04/20 03:34 Micro: Microbiology 03/03/20 20:00 Stool Lactoferrin - Final Stool Enteric Pathogens (PCR) - Final Parasite Antigen Panel - Final C.difficile Toxin B Gene (PCR) - Final Occult Blood (FIT) - Final 03/03/20 12:49 Group A Streptococcus Rapid Screen - Preliminary Throat 03/03/20 19:00 Blood Culture - Preliminary Blood SPECIMEN COLLECTED 03/03/20 15:45 MRSA Culture - Final Nose 03/03/20 12:49 Bacterial Antigens - Final Urine,Voided 03/03/20 12:49 Legionella Urinary Antigen - Final Urethra 03/03/20 12:47 Blood Culture - Preliminary Blood SPECIMEN COLLECTED A&P Assessment and plan (1) Campylobacter enteritis: Status: Acute (2) Fever: Status: Acute (3) Diarrhea: Status: Acute (4) Chronic cough: Status: Acute (5) Type 2 diabetes mellitus: Status: Acute (6) Tachycardia: Most likely secondary to dehydration and fever. Continue with IV fluids. Will rule out PE. Telemetry. Continue to monitor. Status: Acute (7) COVID-19 virus test result unknown: Status: Acute Additional A&P Information History of type 2 diabetes mellitus comes in with chronic cough with exposure to COVID-19 and his neighbor presents with fever for last 24 hours and 4-5 episodes of diarrhea. It is quite possible that source of patient's symptoms is most likely GI given his exposure to COVID-19 will send COVID test to [facility] lab even though rapid COVID-19 test was negative. For now for inflammatory markers d-dimer is elevated, fibrinogen is normal, ferritin level is elevated. Contact and droplet precautions. As patient does not have any rhonchi and saturating normal on room air will hold off on any nebulization or steroids for now. CTA PE negative for embolism. Patient continues to have high-grade fever. Will get CT abdomen pelvis to rule out toxic megacolon. Stool studies appreciated. Positive for Campylobacter. Most likely cause of her symptoms. Continue with Zosyn at renal dose. Normal saline at 75 cc/h. Type 2 diabetes mellitus: A1c 9.2. Patient has required 20 units of insulin since admission. Patient will most likely require glimepiride along with metformin on discharge. For now continue with insulin sliding scale. Full code. Carb consistent diet. For now Lovenox for DVT prophylaxis. Attestations Medical Necessity Statement*: Compile of acute gastroenteritis, COVID-19 results awaited. Time Spent in Patient Care: Greater than 35 minutes (>than 50% of time spent in counselling and/or direct pt care on unit). 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
[2020-03-04] MEDS: enoxaparin 40 mg/0.4 mL Syringe SUBCUT (15:21)
[2020-03-04 16:00] VITALS: BP 126/84; PULSE 97; RESP 20; TEMP 37.7; O2SAT 96
[2020-03-04 16:54] LABS: Glucose Point of Care 189 mg/dL (70-110)
[2020-03-04 20:00] VITALS: BP 134/83; PULSE 92; RESP 16; TEMP 37.4; O2SAT 97
[2020-03-04 21:17] LABS: Glucose Point of Care 219 mg/dL (70-110)
[2020-03-05] MEDS: piperacillin-tazobactam 3.375 GM in sodium chloride 0.9% (plus) 50 ML IV (03:06)
[2020-03-05 04:00] VITALS: BP 147/80; PULSE 94; RESP 18; TEMP 36.9; O2SAT 97
[2020-03-05] MEDS: famotidine 20 mg/2 mL INJ IVP (05:40)
[2020-03-05 06:31] LABS: Glucose Point of Care 181 mg/dL (70-110)
--- NOTE | 2020-03-05 07:30 | PC.NURSE ---
Patient sitting up in chair this morning, denies pain, reports diarrhea, but less frequent than it was reports last BM 0400, discussed plan of care, verbalized understanding and denies further questions or concerns.
[2020-03-05 08:00] VITALS: BP 134/81; PULSE 81; RESP 18; TEMP 36.8; O2SAT 98
[2020-03-05] MEDS: ALPRAZolam 0.25 mg Tablet PO (09:08)
[2020-03-05] MEDS: multivitamin therapeutic Tablet 1 TAB PO (09:08)
[2020-03-05] MEDS: sodium chloride 0.9% 1,000 ML 75 ML IV (09:09)
--- NOTE | 2020-03-05 09:33 | P.DS_ITS ---
Discharge Providers Date of Admission: 03/03/20 15:30 Date of Discharge: March 05, 2020 Attending Provider at Admission: Gianni Vega MD Attending Provider at Discharge: Francis Cortés MD Primary Care Provider: Francis Cortés MD Diagnoses at Discharge Discharge Diagnosis (1) Campylobacter enteritis: Status: Acute (2) Fever: Status: Acute (3) Diarrhea: Status: Acute (4) Chronic cough: Status: Acute (5) Type 2 diabetes mellitus: Status: Acute (6) Tachycardia: Status: Acute (7) COVID-19 virus test result unknown: Status: Acute Reason for Visit Reason for Visit: HAD TEMP LAST NIGHT Hospital Course Discharge Summary: Patient is admitted to the hospital for fevers and abdominal pain and some mild shortness of breath. He had significant diarrhea. Cover testing was negative x2. He had a CTA of his chest which was negative. CT of his abdomen and pelvis showed some colitis. He had an elevated white blood cell count which improved by time of discharge as well. Stool cultures came back for positive for Campylobacter. He was placed on Zosyn. His diarrhea is improving but still has it. No fevers for the past 24 hours. Abdominal pain is improved to. Physical Exam Narrative: EXAM NARRATIVE: General: No acute distress, Alert. Well nourished. Heart: Regular rate and rhythm. No murmurs, rubs or gallops. Normal capillary refill. Lungs: Clear to auscultation. No wheezes, rhonchi or rales. Abdomen: Positive bowel sounds. Non-tender, non-distended. No hepatosplenomegaly. No gaurding. Extremities: No clubbing, cyanosis, or edema. Negative Shine's Discharge Data Data Completed and Pending: Completed Studies During Hospitalization Category Date Time Status CT abdomen pelvis wo con [id number] Urge nt Cat Scan 03/04/20 07:[address] angio chest PE protcl [id number] Urge nt Cat Scan 03/03/20 15:21 Completed XR chest 1V shyanne ble [id number] Stat Exams 03/03/20 12:26 Completed Pending at discharge Category Date Time Status Blood Culture Sta t Lab 03/03/20 19:00 Results Coronavirus Lab T est PTC Routine Lab 03/03/20 17:06 Received Streptococcus Cul ture Group A Stat Lab 03/03/20 12:49 Results Tick Panel Stat Lab 03/03/20 19:00 Received Labs from last 24 hours 03/05/20 03/04/20 03/04/20 06:28 21:11 16:31 POC Glucose 181 219 189 03/04/20 12:09 POC Glucose 233 Vitals: Last Vital Signs Temp 98.3 F 03/05/20 08:00 Pulse 81 03/05/20 08:00 Resp 18 03/05/20 08:00 BP 134/81 03/05/20 08:00 Pulse Ox 98 03/05/20 08:00 Discharge Plan Discharge Patient Disposition: Home Condition: Stable Prescriptions: New azithromycin 500 mg tablet 500 mg PO DAILY 3 Days Qty: 3 RF: 0 Continued Multiple Vitamins Tablet 1 tab PO DAILY RF: 0 alprazolam 0.25 mg tablet 0.25 mg PO BID RF: 0 metformin 1,000 mg tablet 1,000 mg PO BID RF: 0 ibuprofen 200 mg Tablet 600 mg PO PRN RF: 0 Tylenol 2 tab PO PRN RF: 0 Discharge Orders: Discharge Order (Routine); Ordered 03/05/20 Ordered By: Francis Cortés Discharge Diet: Advance as tolerated Discharge Activity: Resume usual activity Activity Restrictions/Additional Instructions: -Discharged home in good condition -Call if increasing abdominal pain, fevers, diarrhea. -Only new prescription is Zithromax 500 mg once a day for 3 days. -I would recommend taking some kmwp-vob-qdncgvy acidophilus tablets 3 times a day for the next week. -Follow-up with Dr. Cortés only if needed end of this week if you are not feeling better. -Your stool culture was positive for Campylobacter and I feel like this is most likely the cause of all of your symptoms. Discharge Attestations Time Spent in Discharge Care*: greater than 30 min Quality Metrics Clinical Quality Measures During this hospital stay, did patient experience: None Coding Level of Care Code Acute Cath Lab Radiology Technician for [facility] Fwd Diagnoses Campylobacter enteritis A04.5 Fever R50.9 Diarrhea R19.7 Chronic cough R05 Type 2 diabetes mellitus E11.9 Tachycardia R00.0 COVID-19 virus test result unknown Z20.828
--- NOTE | 2020-03-05 10:32 | PC.NURSE ---
Discharge instructions provided, denies further questions or concerns, awaiting for beds to meds delivery.
[2020-03-05 10:47] VITALS: BP 134/81; PULSE 81; RESP 18; TEMP 36.8; O2SAT 98
--- NOTE | 2020-03-05 10:48 | PC.NURSE ---
Medication brought to bedside from meds to beds
[2020-03-05 11:39] LABS: Lyme AB Screen <0.90 index
[2020-03-05 13:10] LABS: Coronavirus Lab Test PTC See Report
[2020-03-09 16:44] LABS: RMSF IGG DETECTED; RMSF IGM NOT DETECTED
[2020-03-09 17:14] LABS: E. Chaffeensis AB IGG <1:64; E. Chaffeensis AB IGM <1:20
== END 2020-03-05 10:50 | disposition home or self-care (01) | DRG 373 ==
LOC: ER 12:33 → MEDSURG 16:08
PROVIDERS: Emergency Medicine; Admitting Provider Student in an Organized Health Care Education/Training Program; PCP Family Medicine; Visit Provider Family Medicine
DX: A04.5 Campylobacter enteritis (principal); R50.9 Fever, unspecified; E11.9 Type 2 diabetes mellitus without complications; R05 Cough; M72.2 Plantar fascial fibromatosis; Z87.891 Personal history of nicotine dependence; R00.0 Tachycardia, unspecified; E86.0 Dehydration; K80.20 Calculus of gallbladder without cholecystitis without obstruction; Z79.84 Long term (current) use of oral hypoglycemic drugs; Z20.828 Contact with and (suspected) exposure to other viral communicable diseases
CPT/HCPCS: 12345; 36415; 36416; 71045; 71275; 74176; 80053; 80061; 81001; 81003; 82009; 82274; 82728; 82962; 83036; 83605; 83615; 83630; 83880; 84145; 84443; 84484; 85025; 85378; 85384; 85610; 85730; 86140; 86403; 86618; 86666; 86757; 87040; 87081; 87426; 87449; 87493; 87506; 87635; 87641; 87804; 87880; 93005; 96372; 96375; 99283; J1650; J1815; J2543; J3490; J7030; Q9967

== ENCOUNTER → 2022-01-06 11:51 | Outpatient (BNVA) | payer OTHER, SELFPAY | PROVIDERS: PCP Family Medicine; Visit Provider Family Medicine | DX: R03.0 Elevated blood-pressure reading, without diagnosis of hypertension (principal); E11.8 Type 2 diabetes mellitus with unspecified complications | CPT/HCPCS: 80053; 80061; 83036 ==

== ENCOUNTER → 2022-09-01 09:30 | Outpatient (BNVA) | payer OTHER, SELFPAY | PROVIDERS: PCP Family Medicine; Visit Provider Family Medicine | DX: R00.0 Tachycardia, unspecified (principal) | CPT/HCPCS: 80053; 83036; 84443 ==

== ENCOUNTER → 2022-11-04 09:53 | Outpatient (BNVA) | payer OTHER, SELFPAY | PROVIDERS: PCP Family Medicine; Visit Provider Family Medicine | DX: E11.9 Type 2 diabetes mellitus without complications (principal) | CPT/HCPCS: 80053; 80061; 83036 ==

== ENCOUNTER → 2023-03-03 10:36 | Outpatient (BNVA) | payer OTHER, SELFPAY | PROVIDERS: PCP Family Medicine; Visit Provider Family Medicine | DX: E11.9 Type 2 diabetes mellitus without complications (principal) | CPT/HCPCS: 80053; 83690 ==

== ENCOUNTER → 2023-10-16 08:14 | Outpatient (BNVA) | payer OTHER, SELFPAY | PROVIDERS: PCP Family Medicine; Visit Provider Family Medicine | DX: N52.9 Male erectile dysfunction, unspecified (principal); E11.9 Type 2 diabetes mellitus without complications; I10 Essential (primary) hypertension; R73.03 Prediabetes | CPT/HCPCS: 80053; 80061; 83036; 83690 ==

== ENCOUNTER 2024-04-21 07:48 | Day surgery (SDC) | payer OTHER, SELFPAY ==
[2024-04-21 08:05] VITALS: BP 138/86; PULSE 87; RESP 18; TEMP 36.4; O2SAT 97; BMI 37.2
[2024-04-21] MEDS: sodium chloride 0.9% 1,000 ML 30 ML IV (08:15)
[2024-04-21 08:20] LABS: Glucose Point of Care 258 mg/dL (70-110)
--- NOTE | 2024-04-21 08:54 | W.PM.OPSFHP ---
Same Day Surgery H&P Indication for Procedure/HPI DATE OF PROCEDURE: April 21, 2024 CHIEF COMPLAINT/INDICATIONFOR SURGICAL PROCEDURE: need for screening colonoscopy PREOP DIAGNOSIS: need for screening colonoscopy PLANNED PROCEDURE: Operation Date: 04/21/24 09:00 Proposed Procedures p Colonoscopy 79341, G0121, Z12.11(Not Applicable) - Cameron De Leon MD Medications/Allergies* Home Medications Medication Instructions Recorded Confirmed Type ibuprofen 200 mg tablet 600 mg PO PRN 03/03/20 04/19/24 History multivitamin (Multiple Vitamins 1 tab PO DAILY 03/03/20 04/19/24 History tablet) propranolol 40 mg tablet 40 mg PO BID 04/21/24 04/21/24 History Allergies/Adverse Reactions Allergy/AdvReac Type Severity Reaction Status Date / Time No Known Allergies Allergy Verified 12/30/23 13:41 Current Medications: Generic Name Dose Route Start Last Admin Trade Name Freq PRN Reason Stop Dose Admin Sodium Chloride 1,000 mls @ 30 mls/hr 04/21/24 07:45 04/21/24 08:15 Sodium Chloride 0.9% IV 30 mls/hr .Q24H RICKEY Administration Pertinent History/Comorbid Conditions* Medical History (Updated 10/19/23 @ 14:52 by Francis Cortés MD) Chronic cough Type 2 diabetes mellitus Plantar fasciitis, bilateral Social History Smoking and tobacco/nicotine status: former use of tobacco/nicotine Second hand smoke exposure: No Alcohol intake: never Substance/Drug Use: never Lives independently: Yes Household members: family Housing: House Marital status: Pertinent Exam Findings alert, oriented x 3 and clear to auscultation bilaterally Recommendations Surgery/Procedure today Coding Level of Care Code Acute Code for Chg Fwd
--- NOTE | 2024-04-21 09:35 | ANES.PREANE2 ---
Pre-Anesthetic Assessment Height/Weight: Height 1.73 m Weight 111.13 kg Temp Pulse Resp BP Pulse Ox O2 Del Method 97.6 F 87 18 138/86 97 Room Air 04/21/24 08:05 04/21/24 08:05 04/21/24 08:05 04/21/24 08:05 04/21/24 08:05 04/21/24 08:05 Preop Diagnosis: need for screening colonoscopy Operation Date: 04/21/24 09:00 Proposed Procedures p Colonoscopy 78711, G0121, Z12.11(Not Applicable) - Cameron De Leon MD Was Beta Baljeet taken within 24 hours: Yes Was Clonidine taken within 24 hours: N/A Last intake: Intake Last Liquid Date 04/20/24 Last Liquid Time 20:00 Last Solid Date 04/19/24 Last Solid Time 21:00 Exam alert and oriented x 3 Airway Submandibular: within normal limits Cervical ROM: within normal limits Mallampati: Class II Comments: Comments: missing back molars History/ROS No significant history except as noted Pulmonary Shortness of Breath (uses inhaler; not since last fall) CV/HEM Hypertension pt states takes propanolol for fast HR not BP None reported Hepatic None reported GI Gastroesophageal Reflux Disease (controlled with meds) Metabolic Diabetes Mellitus and Morbid Obesity [facility] None reported Neuropsych Anxiety Anesthetic Plan ASA status: 2 Anesthesia: MAC Risk of > 500 ml blood loss (7ml/kg in children): No Medications/Allergies Home Medications Medication Instructions Recorded Confirmed Last Taken Type ibuprofen 200 mg tablet 600 mg PO PRN 03/03/20 04/19/24 03/03/20 09:00 History multivitamin (Multiple Vitamins 1 tab PO DAILY 03/03/20 04/19/24 04/20/24 History tablet) blood sugar diagnostic (Accu-Chek #100 ea 12/04/22 04/19/24 Unknown Rx Rebekah Plus test strips) albuterol sulfate 90 mcg/actuation 2 inh inhalation QID PRN shortness 04/20/23 04/19/24 Unknown Rx aerosol inhaler of breath or wheezing #8.5 grams semaglutide 2 mg/dose (8 mg/3 mL) 2 mg (0.75 mL) SUBCUT .weekly #3 mL 08/20/23 04/19/24 04/13/24 Rx subcutaneous pen injector tadalafil 5 mg tablet See Rx Instructions .Route 01/01/24 04/19/24 Unknown Rx .COMPLEX #30 tabs glimepiride 4 mg tablet 4 mg PO BID #180 tabs 03/25/24 04/19/24 04/20/24 Rx alprazolam 0.25 mg tablet 0.25 mg PO BID #60 tabs 04/21/24 Unknown Rx propranolol 40 mg tablet 40 mg PO BID 04/21/24 04/21/24 04/21/24 History Allergies Allergy/AdvReac Type Severity Reaction Status Date / Time No Known Allergies Allergy Verified 12/30/23 13:41 Current Medications Generic Name Dose Route Start Last Admin Trade Name Freq PRN Reason Stop Dose Admin Sodium Chloride 1,000 mls @ 30 mls/hr 04/21/24 07:45 04/21/24 08:15 Sodium Chloride 0.9% IV 30 mls/hr .Q24H RICKEY Administration PFSH Anesthesia Medical History Chronic cough Type 2 diabetes mellitus Plantar fasciitis, bilateral Social History Smoking and tobacco/nicotine status: former use of tobacco/nicotine Second hand smoke exposure: No Alcohol intake: never Substance/Drug Use: never Lives independently: Yes Household members: family Housing: House Marital status: Data Anesthesia Cardiac Studies: No Data to Display
[2024-04-21 10:09] VITALS: BP 114/65; PULSE 80; RESP 18; TEMP 36.1; O2SAT 95
[2024-04-21 10:19] VITALS: BP 110/70; PULSE 79; RESP 18; O2SAT 96
[2024-04-21 10:30] VITALS: BP 107/88; PULSE 79; RESP 18; O2SAT 99
--- NOTE | 2024-04-21 10:40 | ANE.PACU2 ---
Inpatient post-anesthesia follow up: Airway intact: Yes Vital signs: Temperature 97.0 F Pulse Rate 79 Respiratory Rate 18 Blood Pressure 107/88 Pulse Oximetry 99 Oxygen Delivery Me thod Room Air Oxygen Flow Rate Fraction of Inspir ed Oxygen Hydration adequate: Yes Nausea and vomiting: No Pain level: 1 Mental status: Baseline
== END 2024-04-21 10:40 | disposition home or self-care (01) ==
PROVIDERS: PCP Family Medicine; Visit Provider Surgery
PROC: 0DJD8ZZ Inspection of Lower Intestinal Tract, Via Natural or Artificial Opening Endoscopic (ICD-10-PCS; CPT 45378; principal; 2024-04-21 09:00)
DX: Z12.11 Encounter for screening for malignant neoplasm of colon (principal); E11.9 Type 2 diabetes mellitus without complications; Z87.891 Personal history of nicotine dependence; I10 Essential (primary) hypertension; K21.9 Gastro-esophageal reflux disease without esophagitis; F41.9 Anxiety disorder, unspecified; E66.01 Morbid (severe) obesity due to excess calories; Z68.37 Body mass index [BMI] 37.0-37.9, adult
CPT/HCPCS: 36416; 45378; 82962; J2704; J7030

== ENCOUNTER → 2024-04-26 09:33 | Outpatient (BNVA) | payer OTHER, SELFPAY | PROVIDERS: PCP Family Medicine; Visit Provider Family Medicine | DX: E11.9 Type 2 diabetes mellitus without complications (principal) | CPT/HCPCS: 80053; 83036 ==

== ENCOUNTER → 2024-10-25 07:41 | Outpatient (BNVA) | payer OTHER, SELFPAY | PROVIDERS: PCP Family Medicine; Visit Provider Family Medicine | DX: E11.9 Type 2 diabetes mellitus without complications (principal) | CPT/HCPCS: 80053; 80061; 83036 ==

== ENCOUNTER → 2025-04-27 07:24 | Outpatient (BNVA) | payer OTHER, SELFPAY | PROVIDERS: PCP Family Medicine; Visit Provider Family Medicine | DX: E11.9 Type 2 diabetes mellitus without complications (principal); R53.83 Other fatigue | CPT/HCPCS: 80053; 80061; 82607; 83036; 83880; 84403; 84443; 85025; 86140 ==